=== PATIENT | female | born 1990 | race Caucasian/White ===

== ENCOUNTER 2019-01-14 10:48 | Emergency (ER) | payer MEDICAID ==
[2019-01-14 11:06] VITALS: BP 110/63; Ht 162.6 cm
== END 2019-01-14 12:06 | disposition home or self-care (01) ==
LOC: ED 10:48
DX: S80.02XA Contusion of left knee, initial encounter (principal); W20.8XXA Other cause of strike by thrown, projected or falling object, initial encounter; Y93.89 Activity, other specified; Y92.89 Other specified places as the place of occurrence of the external cause; Y99.8 Other external cause status

== ENCOUNTER 2019-03-13 02:23 | Emergency (ER) | payer MEDICAID ==
[~2019-03-13] VITALS: Ht 154.9 cm; Wt 59.0 kg
[2019-03-13 02:26] VITALS: Ht 154.9 cm; Wt 59.0 kg
[2019-03-13 04:28] VITALS: BP 101/76
== END 2019-03-13 04:28 | disposition home or self-care (01) ==
LOC: ED 02:23
DX: R10.11 Right upper quadrant pain (principal); R11.2 Nausea with vomiting, unspecified
CPT/HCPCS: J1885; Q0162